=== PATIENT | female | born 1945 | race Caucasian/White ===

== ENCOUNTER 2016-11-11 08:22 | Emergency (ER) | payer MEDICARE ==
[~2016-11-11] VITALS: Ht 167.6 cm; Wt 78.8 kg
[~2016-11-11 08:22] MED LIST: 1-ME1LIQ PO; ASCO500C PO; ASPI-94 PO; BENT20TA PO; CALC600T34 PO; DIAZ5 PO; DICY10CA13 PO; HYDR-2768 PO; LISI40TA PO; MULT1TAB46 PO; OMEG5CAP PO; PROT40TA PO; TRAD5TAB PO; ULTR50TA PO; ZOCO40TA PO; ZOFR4TAB3 PO
[2016-11-11 08:24] VITALS: BP 186/86; PULSE 79; RESP 16; TEMP 97.7; O2SAT 97
[2016-11-11] MEDS ORDERED: MULT1TAB46 PO (08:47)
[2016-11-11] MEDS ORDERED: FISHCAP4 PO (08:47)
[2016-11-11] MEDS ORDERED: CALC1TAB87 PO (08:47)
[2016-11-11] MEDS ORDERED: TRAM50TA PO (08:50)
--- NOTE | 2016-11-11 08:50 | PD ---
HPI Chief Complaint: Abdominal Pain Time Seen by Provider: 08:35 Travel History International Travel<30 days: No Contact w/Intl Traveler<30days: No Traveled to known affect area: No History of Present Illness HPI The patient was seen and examined in the presence of the nurse. This patient complains of abdominal pain. She gets frequent flares exactly like this for 3- 4 years time. She has had multiple extensive workups. She sees GI regularly. She at one point was told she had a dysfunctional gallbladder and has appointment with Dr. Kalia constantino in 2 days for this reason. This point she looks clinically well. Eating does not make it worse. She has no vomiting or diarrhea or fever. She's had an appendectomy. PFSH Past Medical History Hx Anticoagulant Therapy: Yes (81 MG ASA, DAILY) Blood Disorders: No Anxiety: Yes Heart Rhythm Problems: No Cancer: No Cardiac Catheterization: No Cardiovascular Problems: Yes High Cholesterol: Yes Chemotherapy: No Congestive Heart Failure: No Cerebrovascular Accident: No Diabetes: Yes (Type 2) Patient Takes Glucophage: No Diminished Hearing: No Genitourinary: No Hypertension: Yes Musculoskeletal: No Neurologic: No Psychiatric: No Reproductive: No Respiratory: No Immunizations Current: Yes Tetanus Vaccination: < 5 Years Influenza Vaccination: No ?: Not Menopausal: Yes : 3 Para: 3 Past Surgical History AICD: No Appendectomy: Yes (1999) Arteriovenous Shunt: No Coronary Artery Bypass Graft: No Hysterectomy: No Insulin Pump: No Joint Replacement: No Pacemaker: No Other Surgery: Yes (APP1999) Family History Family Myocardial Infarction: Yes (Mother 50's, brother 60's) Social History Alcohol Use: No Tobacco Use: No Substance Use: No Allergies-Medications (Allergen,Severity, Reaction): Coded Allergies: Metformin (Verified Allergy, Severe, LIP SWELLING, 11/11/16) Augmentin (Verified Allergy, Intermediate, LIPS SWELL, 11/11/16) Uncoded Allergies: JARDIANCE (Allergy, Severe, LIP SWELLING, 07/29/15) . Reported Meds & Prescriptions Reported Meds & Active Scripts Active Review of Systems General / Constitutional: No: Fever HENT: No: Headaches Cardiovascular: No: Chest Pain or Discomfort Respiratory: No: Cough Physical Exam Narrative GASTROINTESTINAL: Abdomen soft, non-tender, nondistended. Positive bowel sounds. No hepato-splenomegaly, or palpable masses. No guarding. SKIN: Focused skin assessment reveals no rash or ulcers. Skin is warm and dry. Palpation shows no induration or nodules. Psych: Normal mood and affect. Normal insight and judgment. Data Data Last Documented VS Vital Signs Date Time Temp Pulse Resp B/P Pulse Ox O2 Delivery O2 Flow Rate FiO2 11/11/16 08:24 97.7 79 16 186/86 97 MDM Medical Decision Making Medical Screen Exam Complete: Yes Emergency Medical Condition: Yes Medical Record Reviewed: Yes Differential Diagnosis Biliary dysfunction, gastroparesis, irritable bowel syndrome Narrative Course I have reviewed the patient's electronic medical record. 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 Check and record blood pressure daily Disposition: 01 DISCHARGE HOME Condition: Stable Pierce Cordova MD Nov 11, 2016 08:50
[2016-11-11] MEDS ORDERED: HYDR25TA5 PO (08:55)
[2016-11-11] MEDS ORDERED: DICY20TA10 PO (08:55)
[2016-11-11] MEDS ORDERED: PROT40TA PO (08:55)
[2016-11-11] MEDS ORDERED: ASPI81CH37 CHEW (08:55)
[2016-11-11] MEDS ORDERED: FLUC150T PO (08:55)
[2016-11-11] MEDS ORDERED: SIMV40TA PO (08:55)
[2016-11-11] MEDS ORDERED: SYSTSOL EACH EYE (08:55)
[2016-11-11] MEDS ORDERED: LISI40TA PO (08:55)
[2016-11-11] MEDS ORDERED: VITA250C3 CHEW (08:55)
[2016-11-11] MEDS ORDERED: DIAZ5TAB PO (08:55)
== END 2016-11-11 09:05 | disposition home or self-care (01) ==
LOC: PHED 08:22
DX: R10.10 Upper abdominal pain, unspecified (principal); I10 Essential (primary) hypertension; E11.9 Type 2 diabetes mellitus without complications; E78.00 Pure hypercholesterolemia, unspecified; Z79.82 Long term (current) use of aspirin
CPT/HCPCS: 99283

== ENCOUNTER 2016-12-25 12:03 | Emergency (ER) | payer MEDICARE ==
[~2016-12-25] VITALS: Ht 167.6 cm; Wt 78.0 kg
[~2016-12-25 12:03] MED LIST changes: -1-ME1LIQ PO; -ASCO500C PO; -ASPI-94 PO; +ASPI81CH37 CHEW; -BENT20TA PO; +CALC1TAB87 PO; -CALC600T34 PO; -DIAZ5 PO; +DIAZ5TAB PO; -DICY10CA13 PO; +DICY20TA10 PO; +FISHCAP4 PO; +FLUC150T PO; -HYDR-2768 PO; +HYDR25TA5 PO; -OMEG5CAP PO; +SIMV40TA PO; +SYSTSOL EACH EYE; -TRAD5TAB PO; +TRAM50TA PO; -ULTR50TA PO; +VITA250C3 CHEW; -ZOCO40TA PO; -ZOFR4TAB3 PO
[2016-12-25 12:04] VITALS: BP 166/72; PULSE 81; RESP 16; TEMP 97.8; O2SAT 96
[2016-12-25] MEDS ORDERED: AMLO10TA2 PO (12:24)
[2016-12-25] MEDS ORDERED: VALA500T PO (12:24)
--- NOTE | 2016-12-25 13:10 | PD ---
HPI Chief Complaint: Musculoskeletal Complaint Time Seen by Provider: 12:32 Travel History International Travel<30 days: No Contact w/Intl Traveler<30days: No Traveled to known affect area: No History of Present Illness HPI 71-year-old female presents to the emergency room for evaluation of right wrist pain and swelling after slip and fall just prior to arrival. Patient slipped in her garage floor and fell backwards catching herself with an outstretched arm. She had immediate pain. She denies hitting her head or loss of consciousness. Denies any other significant injuries. She did not take anything for pain but came straight to the emergency room. She denies paresthesias or loss of range of motion. Pain is localized to the radial wrist without radiation. Denies elbow pain. PFSH Past Medical History Hx Anticoagulant Therapy: Yes (ASA 81MG DAILY) Blood Disorders: No Anxiety: Yes Heart Rhythm Problems: No Cancer: No Cardiac Catheterization: No Cardiovascular Problems: Yes High Cholesterol: Yes Chemotherapy: No Congestive Heart Failure: No Cerebrovascular Accident: No Diabetes: Yes Patient Takes Glucophage: No Diminished Hearing: No Genitourinary: No Hypertension: Yes Musculoskeletal: No Neurologic: No Psychiatric: No Reproductive: No Respiratory: No Immunizations Current: Yes ?: Not Menopausal: Yes : 3 Para: 3 Past Surgical History AICD: No Appendectomy: Yes (1999) Arteriovenous Shunt: No Coronary Artery Bypass Graft: No Hysterectomy: No Insulin Pump: No Joint Replacement: No Pacemaker: No Other Surgery: Yes (APPY 1999) Family History Family Myocardial Infarction: Yes (MOTHER- 50'S, BROTHER-60'S) Social History Alcohol Use: No Tobacco Use: No Substance Use: No Allergies-Medications (Allergen,Severity, Reaction): Coded Allergies: amoxicillin (Unverified Allergy, Severe, Lip swelling, 12/25/16) clavulanic acid (Unverified Allergy, Severe, Lip swelling, 12/25/16) metformin (Unverified Allergy, Severe, Lip swelling, 12/25/16) Uncoded Allergies: JARDIANCE (Allergy, Severe, Lip swelling, 11/11/16) Reported Meds & Prescriptions Reported Meds & Active Scripts Active Lortab (Hydrocodone-Acetaminophen) 5-325 Mg Tab 1 Tab PO Q6H PRN Reported Amlodipine (Amlodipine Besylate) 10 Mg Tab 10 Mg PO DAILY Valacyclovir (Valacyclovir HCl) 500 Mg Tab 1,000 Mg PO DAILY Dicyclomine (Dicyclomine HCl) 20 Mg Tab 20 Mg PO TID Protonix (Pantoprazole Sodium) 40 Mg Tab 40 Mg PO DAILY Simvastatin 40 Mg Tab 40 Mg PO HS Lisinopril 40 Mg Tab 40 Mg PO DAILY Hydrochlorothiazide 25 Mg Tab 25 Mg PO DAILY Aspirin Low Dose (Aspirin) 81 Mg Chew 81 Mg CHEW DAILY Diazepam 5 Mg Tab 5 Mg PO BID PRN Vitamin C (Ascorbic Acid) 250 Mg Chew 500 Mg CHEW DAILY Systane Opth Drops (Polyethylene Glycol-Propylene Glycol Opth Drp) 0.4-0.3% Soln 1 Drop EACH EYE BID Multi Vitamin Daily (Multiple Vitamin) 1 Tab Tab 1 Tab PO DAILY Fish Oil + D3 (Fish Oil-Cholecalciferol) 1,200-1,000 Mg-Unit Cap 1 Cap PO DAILY Calcium 600 with Vitamin D (Calcium Carbonate-Cholecalciferol) 600-400 mg-Unit Tab 1 Tab PO DAILY Review of Systems Except as stated in HPI: all other systems reviewed are Neg Physical Exam Narrative GENERAL: Well-nourished, well-developed female in no acute distress. Afebrile. Ambulatory. SKIN: Focused skin assessment warm/dry. No erythema or ecchymosis. HEAD: Normocephalic. EYES: No scleral icterus. No injection or drainage. NECK: Supple, trachea midline. No JVD or lymphadenopathy. CARDIOVASCULAR: Regular rate and rhythm without murmurs, gallops, or rubs. RESPIRATORY: Breath sounds equal bilaterally. No accessory muscle use. MUSCULOSKELETAL: No cyanosis. Obvious deformity of the right wrist with dorsal angulation of the radius. 2+ radial pulse. Full range motion of the hand. No tenderness to palpation of the elbow. Extreme tenderness palpation of the right distal radius. Data Data Last Documented VS Vital Signs Date Time Temp Pulse Resp B/P (MAP) Pulse Ox O2 Delivery O2 Flow Rate FiO2 12/25/16 12:04 97.8 81 16 166/72 (103) 96 Orders Orders Wrist, Complete ([id number]) (12/25/16 ) Splint Or Brace Apply/Monitor (12/25/16 14:29) Propofol 200 Mg/20 Ml Inj (Diprivan 200 (12/25/16 14:45) Wrist, Limited (Ap&Lat) (12/25/16 ) Acetamin-Hydrocod 325-5 Mg ([place] 5-325 (12/25/16 15:15) MDM Medical Decision Making Medical Screen Exam Complete: Yes Emergency Medical Condition: Yes Medical Record Reviewed: Yes Differential Diagnosis Fracture, strain, sprain, dislocation Narrative Course 71-year-old female presents to the emergency room for evaluation of right wrist pain after slipping fall just prior to arrival. Patient denies any other injuries. Physical exam reveals obvious deformity of the right wrist with dorsal angulation of the radius. 2+ radial pulse. Full range motion of the hand. No tenderness to palpation of the elbow. Extreme tenderness palpation of the right distal radius. X-ray shows transverse distal radial fracture with anterior angulation and nondisplaced ulnar styloid fracture. I spoke to the orthopedic surgeon hat conditioner, Dr. Coppola, who recommends reducing the wrist and placing in sugar tong splint and having her follow-up in his [facility] office later today to schedule outpatient surgery. Patient was given conscious sedation for reduction of right wrist, see at alternate provider note for details. Postreduction x-rays show improvement in alignment. Patient reports improvement in pain. She was given Lortab prior to discharge. Patient discharged with prescription for Lortab and told to return for worsening symptoms. She understands and agrees to plan. Diagnosis Primary Impression: Right wrist fracture Qualified Codes: S62.101A - Fracture of unspecified carpal bone, right wrist, initial encounter for closed fracture Referrals: David Coppola MD Additional Instructions: Rest and drink plenty of fluids. Take Lortab food as directed, as needed for pain. Do not drink alcohol or drive while taking this medication. Apply ice to the affected area for 20 minutes at a time, as needed for pain and swelling. Follow-up with Dr. Coppola of his [facility] office when you leave here. His office is expecting you. Scripts Hydrocodone-Acetaminophen (Lortab) 5-325 Mg Tab 1 TAB PO Q6H Y for PAIN, #15 TAB 0 Refills Prov: Unruly Gaitan MD 12/25/16 Disposition: 01 DISCHARGE HOME Condition: Stable Drea Bajwa Dec 25, 2016 13:10
--- NOTE | 2016-12-25 13:25 | RADRPT ---
EXAM DATE/TIME: 12/25/2016 12:23 [facility] COMPARISON: No previous studies available for comparison. INDICATIONS : Wrist pain. MEDICAL HISTORY : None. SURGICAL HISTORY : None. ENCOUNTER: Initial ACUITY: 1 day PAIN SCORE: 10/10 LOCATION: Right wrist FINDINGS: Three view right wrist demonstrates there is a transverse fracture of the distal radius. There is a fracture of the ulnar styloid. The visualized carpal bones are intact. The metacarpal bases are int act. CONCLUSION: Transverse distal radial fracture with anterior angulation without involvement of the articulating blancas rface. Non-displaced ulnar styloid fracture. Edwar Nova MD on December 25, 2016 at 12:40 Board Certified Radiologist. This report was verified electronically.
[2016-12-25] MEDS ORDERED: PROPOFOL 200 MG/20 ML AMP IV ONE (14:45)
[2016-12-25 14:46] VITALS: O2SAT 98
[2016-12-25] MEDS ORDERED: HYDR-3533 PO (14:53)
--- NOTE | 2016-12-25 14:59 | PD ---
Physical Exam Date Seen by Provider: Dec 25, 2016 Time Seen by Provider: 14:00 Narrative I, Dr. Gaitan, have reviewed the advance practice practitioner's documentation and am in agreement, met with the patient face to face, made the diagnosis, and the medical decision making was done by me. *My assessment and Findings: Patient was seen and evaluated with PA, please see PA note for further details. X-ray shows distal radial ulnar fracture which is displaced. Case was discussed with orthopedics who would like us to do a reduction via conscious sedation and release the patient to follow-up as an outpatient for further treatment. At this point, I have discussed the risks and benefits with the patient, conscious sedation was done by me and wrist reduction was done. Patient tolerated procedure well. X-ray follow-up was done. Shows improved alignment. Patient is a certain the ER until completely awake and then released to follow-up with orthopedics. Data Data Last Documented VS Vital Signs Date Time Temp Pulse Resp B/P (MAP) Pulse Ox O2 Delivery O2 Flow Rate FiO2 12/25/16 12:04 97.8 81 16 166/72 (103) 96 Orders Orders Wrist, Complete ([id number]) (12/25/16 ) Splint Or Brace Apply/Monitor (12/25/16 14:29) Propofol 200 Mg/20 Ml Inj (Diprivan 200 (12/25/16 14:45) Wrist, Limited (Ap&Lat) (12/25/16 ) Acetamin-Hydrocod 325-5 Mg ([place] 5-325 (12/25/16 15:15) MDM Medical Record Reviewed: Yes Supervised Visit with DANILO: Yes Procedures Procedure Narrative After the risks and benefits were discussed the following procedure was performed: MODERATE SEDATION: The patient was placed on a biomedical field service engineer and pulse oximetry. An ambu bag and suction was immediately available at bedside. The patient was monitored by the nurse. Oxygen saturation, heart rate and blood pressure were monitored. Procedural sedation was acheived using 75 mg of propofol. The patient was observed until awake and alert. Procedural Sedation time in attendance was 15 minutes. The right wrist was reduced by traction countertraction and was placed in a sugar tong splint. Good pulses were palpated before and after procedure. X- ray was done which shows improved alignment. Diagnosis Primary Impression: Right wrist fracture Qualified Codes: S62.101A - Fracture of unspecified carpal bone, right wrist, initial encounter for closed fracture Referrals: David Coppola MD Additional Instruction: Rest and drink plenty of fluids. Take Lortab food as directed, as needed for pain. Do not drink alcohol or drive while taking this medication. Apply ice to the affected area for 20 minutes at a time, as needed for pain and swelling. Follow-up with Dr. Coppola of his [facility] office when you leave here. His office is expecting you. Scripts Hydrocodone-Acetaminophen (Lortab) 5-325 Mg Tab 1 TAB PO Q6H Y for PAIN, #15 TAB 0 Refills Prov: Unruly Gaitan MD 12/25/16 Disposition: 01 DISCHARGE HOME Condition: Stable Unruly Gaitan MD Dec 25, 2016 14:59
--- NOTE | 2016-12-25 15:12 | RADRPT ---
EXAM DATE/TIME: 12/25/2016 14:57 [facility] COMPARISON: No previous studies available for comparison. INDICATIONS : Post reduction right wrist MEDICAL HISTORY : None. SURGICAL HISTORY : None. ENCOUNTER: Subsequent ACUITY: 1 day PAIN SCORE: 0/10 LOCATION: Right wrist FINDINGS: Near anatomic alignment in fiberglass. CONCLUSION: Near-anatomic alignment in fiberglass following reduction of Colles' fracture [place] T[place] MD FACR on December 25, 2016 at 15:10 Board Certified Radiologist. This report was verified electronically.
[2016-12-25] MEDS ORDERED: ACETAMINOPHEN/HYDROcodone 325 MG/5 MG TAB PO ONE (15:15)
[2016-12-25 15:38] VITALS: BP 155/73; PULSE 76; RESP 16; O2SAT 96
== END 2016-12-25 15:40 | disposition home or self-care (01) ==
LOC: PHEFT 12:03 → PHED 15:40
DX: S62.101A Fracture of unspecified carpal bone, right wrist, initial encounter for closed fracture (principal); E11.9 Type 2 diabetes mellitus without complications; I10 Essential (primary) hypertension; E78.00 Pure hypercholesterolemia, unspecified; Z79.82 Long term (current) use of aspirin; Z86.59 Personal history of other mental and behavioral disorders; Z86.79 Personal history of other diseases of the circulatory system; W01.0XXA Fall on same level from slipping, tripping and stumbling without subsequent striking against object, initial encounter; Y92.015 Private garage of single-family (private) house as the place of occurrence of the external cause
CPT/HCPCS: 25605; 73100; 73110; 94770; 99152